=== PATIENT | female | born 1950 | race Caucasian/White ===

== ENCOUNTER → 2018-10-24 07:59 | Outpatient (CLI) | payer OTHER, SELFPAY ==
[2018-10-24 08:52] LABS: Hematocrit 39.5 % (36-46); Hemoglobin 13.2 g/dL (12.0-16.0); Mean Corpuscular HGB Conc 33.4 % (30-36); Mean Corpuscular Hemoglobin 31.7 PG (26-34); Mean Corpuscular Volume 94.8 fL (80-100); Platelet Count 202 X10^3/uL (150-400); Red Blood Cell Count 4.17 X10^6/uL (4.0-5.2); Red Cell Distribution Width 13.6 % (11.6-14.8); White Blood Cell Count 5.3 X10^3/uL (4.5-11.0)
[2018-10-24 09:01] LABS: Hemoglobin A1C% w Est Avg Glu 5.3 % (4.0-6.0)
[2018-10-24 09:29] LABS: Alanine Aminotransferase 38 IU/L (9-52); Albumin 4.4 g/dL (3.5-5.0); Alkaline Phosphatase 58 U/L (38-126); Aspartate Aminotransferase 30 IU/L (14-36); BUN Creatinine Ratio 18.9 (6-22); Bilirubin Total 0.6 mg/dL (0.2-1.3); Blood Urea Nitrogen 17 mg/dL (7-17); Calcium 9.2 mg/dL (8.4-10.2); Carbon Dioxide 28 mmol/L (22-32); Chloride 102 mmol/L (98-107); Cholesterol 219 mg/dL (140-199); Estimated Glomerular Filt Rate > 60.0 mL/min (>60); Globulin 4.4 g/dL (1.7-4.1); Glucose 84 mg/dL (80-110); HDL Cholesterol 68 mg/dL (40-60); HEMOLYSIS < 15 (0-50); LDL Cholesterol Calculated 134 mg/dL (<100); Potassium 4.6 mmol/L (3.4-5.1); Sodium 141 mmol/L (137-145); Total Protein 8.8 g/dL (6.3-8.2); Triglycerides 83 mg/dL (35-150)
[2018-10-24 09:42] LABS: Vitamin D 25 Hydroxy (D3) 38.3 ng/mL (30.0-100.0)
[2018-10-24 09:56] LABS: TSH w/ Reflex to FT4 2.76 uIU/mL (0.47-4.68)
== END ==
PROVIDERS: PCP Nurse Practitioner Family; Visit Provider Nurse Practitioner Family
DX: Z00.00 Encounter for general adult medical examination without abnormal findings (principal); Z68.35 Body mass index [BMI] 35.0-35.9, adult; R63.5 Abnormal weight gain
CPT/HCPCS: 36415; 80053; 80061; 82306; 83036; 84443; 85027

== ENCOUNTER → 2018-11-28 14:23 | Outpatient (CLI) | payer OTHER, SELFPAY ==
--- NOTE | 2018-11-28 14:25 | DI.MG.S_ITS ---
BILATERAL DIGITAL SCREENING MAMMOGRAM 3D/2D WITH CAD: 11/28/2018 CLINICAL: Routine screening. Comparison is made to exams dated: 10/15/2017 mammogram, 08/21/2016 mammogram, and 09/14/2014 mammogram - [facility]. The tissue of both breasts is heterogeneously dense. This may lower the sensitivity of mammography. Current study was also evaluated with a Computer Aided Detection (CAD) system. No significant masses, calcifications, or other findings are seen in either breast. There has been no significant interval change. IMPRESSION: NEGATIVE There is no mammographic evidence of malignancy. A 1 year screening mammogram is recommended. This exam was interpreted at Station ID: [id number]. NOTE: For mammograms, a report in lay terms will be sent to the patient. Approximately 15% of breast malignancies will not be visualized mammographically. In the management of a palpable breast mass, a negative mammogram must not discourage biopsy of a clinically suspicious lesion. Electronically Signed By: Ismael washburn/farhan:11/28/2018 20:10:37 letter sent: Normal Exam ACR BI-RADS Category 1: Negative 3341F
== END ==
PROVIDERS: PCP Nurse Practitioner Family; Visit Provider Nurse Practitioner Family
DX: Z12.31 Encounter for screening mammogram for malignant neoplasm of breast (principal)
CPT/HCPCS: 77063; 77067

== ENCOUNTER → 2019-05-26 09:25 | Outpatient (CLI) | payer OTHER, SELFPAY ==
[2019-05-26 11:15] LABS: Alanine Aminotransferase 25 IU/L (9-52); Albumin 4.1 g/dL (3.5-5.0); Alkaline Phosphatase 64 U/L (38-126); Aspartate Aminotransferase 26 IU/L (14-36); BUN Creatinine Ratio 18.9 (6-22); Bilirubin Total 0.6 mg/dL (0.2-1.3); Blood Urea Nitrogen 17 mg/dL (7-17); Calcium 9.1 mg/dL (8.4-10.2); Carbon Dioxide 28 mmol/L (22-32); Chloride 102 mmol/L (98-107); Cholesterol 204 mg/dL (140-199); Estimated Glomerular Filt Rate > 60.0 mL/min (>60); Globulin 4.2 g/dL (1.7-4.1); Glucose 94 mg/dL (80-110); HDL Cholesterol 76 mg/dL (40-60); HEMOLYSIS < 15 (0-50); LDL Cholesterol Calculated 111 mg/dL (<100); Potassium 4.8 mmol/L (3.4-5.1); Sodium 137 mmol/L (137-145); Total Protein 8.3 g/dL (6.3-8.2); Triglycerides 85 mg/dL (35-150)
== END ==
PROVIDERS: PCP Nurse Practitioner Family; Visit Provider Nurse Practitioner Family
DX: E78.00 Pure hypercholesterolemia, unspecified (principal); E88.09 Other disorders of plasma-protein metabolism, not elsewhere classified
CPT/HCPCS: 36415; 80053; 80061

== ENCOUNTER → 2019-07-09 10:24 | Outpatient (CLI) | payer OTHER, SELFPAY ==
--- NOTE | 2019-07-09 10:27 | DI.RAD.S_ITS ---
PROCEDURE: XR SHOULDER LT MIN 2V INDICATIONS: left shoulder pain TECHNIQUE: 3 views of the shoulder were acquired. COMPARISON: None. FINDINGS: Bones: No fractures or dislocations. No suspicious bony lesions. Visualized ribs appear intact. Mild left shoulder joint degeneration. Soft tissues: No suspicious soft tissue calcifications. IMPRESSION: Mild left shoulder joint degeneration. If the patient's pain or other symptoms persist, consider further evaluation with MRI Dictated by: Omar Jung M.D. on 07/09/2019 at 14:17 Approved by: Omar Jung M.D. on 07/09/2019 at 14:20
== END ==
PROVIDERS: PCP Nurse Practitioner Family; Visit Provider Nurse Practitioner Family
DX: M25.512 Pain in left shoulder (principal); M19.012 Primary osteoarthritis, left shoulder
CPT/HCPCS: 73030

== ENCOUNTER → 2019-07-27 14:10 | Outpatient (CLI) | payer OTHER, SELFPAY ==
--- NOTE | 2019-07-27 14:11 | DI.MRI.S_ITS ---
PROCEDURE: MR SHOULDER LT WO CON INDICATIONS: left shoulder PAIN TECHNIQUE: Noncontrast oblique coronal T2 fast spin echo with fat saturation, oblique sagittal T1 spin echo and T2 fast spin echo with fat saturation, axial T1 spin echo and T2 fast spin echo with fat saturation through the shoulder. COMPARISON: None. FINDINGS: Image quality: Diagnostic. Rotator cuff: Thickening and increased signal is identified involving the supraspinatus and infraspinatus tendons with linear areas of increased signal at the level of the footprint and distal margins of both of these tendons. There is also increased signal identified along the infraspinatus myotendinous junction. Moderate grade bursal surface partial-thickness tearing involving the anterior distal supraspinatus tendon at the level of the footprint is present. The subscapularis and teres minor tendons are intact. There is no significant atrophy of the rotator cuff muscles. Bones and bursae: No acute fracture, dislocation, or suspicious osseous lesion is appreciated involving the osseous structures of the left shoulder. Mild degenerative changes of the glenohumeral joint are present. There moderate degenerative changes of the acromioclavicular joint. No significant glenohumeral joint effusion is present. A moderate amount of fluid is contained within the subacromial subdeltoid bursa. Capsule and soft tissues: Evaluation of the labrum and the glenohumeral ligaments is difficult without intra-articular contrast. No acute ligamentous injuries are suspected. No discrete labral tears are appreciated. However, there is heterogeneity of the posterior labrum. The long head of the biceps tendon is normally positioned within the bicipital groove and is otherwise intact. Slight increased signal and thickening involving the intra-articular portion of this tendon may be present as it passes over the humeral head. IMPRESSION: 1. Low to moderate grade partial-thickness tearing and tendinopathy of the infraspinatus and supraspinatus tendons. There may be an interstitial/delaminating partial-thickness component of the infraspinatus tendon. 2. [id number] degenerative changes of the left shoulder joints. 3. Fluid within the subacromial subdeltoid bursa may represent bursitis. 4. Mild tendinopathy involving the intra-articular portion of the biceps tendon. Dictated by: Ranjit Bruce M.D. on 07/27/2019 at 17:07 Approved by: Ranjit Bruce M.D. on 07/27/2019 at 17:09
== END ==
PROVIDERS: PCP Nurse Practitioner Family; Visit Provider Nurse Practitioner Family
DX: M25.512 Pain in left shoulder (principal); M75.112 Incomplete rotator cuff tear or rupture of left shoulder, not specified as traumatic; M19.012 Primary osteoarthritis, left shoulder; M67.922 Unspecified disorder of synovium and tendon, left upper arm
CPT/HCPCS: 73221

== ENCOUNTER → 2019-09-30 07:48 | Outpatient (CLI) | payer OTHER, SELFPAY ==
[2019-09-30 09:51] LABS: Cholesterol 210 mg/dL (140-199); HDL Cholesterol 55 mg/dL (40-60); LDL Cholesterol Calculated 142 mg/dL (<100); Triglycerides 65 mg/dL (35-150)
== END ==
PROVIDERS: PCP Nurse Practitioner Family; Referring Provider Nurse Practitioner Family; Visit Provider Nurse Practitioner Family
DX: E78.2 Mixed hyperlipidemia (principal)
CPT/HCPCS: 36415; 80061

== ENCOUNTER → 2020-06-29 11:32 | Outpatient (CLI) | payer OTHER, SELFPAY ==
[2020-06-29 14:49] LABS: Alanine Aminotransferase 29 IU/L (<35); Albumin 4.3 g/dL (3.5-5.0); Alkaline Phosphatase 76 U/L (38-126); Aspartate Aminotransferase 30 IU/L (14-36); BUN Creatinine Ratio 17.2 (6-22); Bilirubin Total 0.5 mg/dL (0.2-1.3); Blood Urea Nitrogen 15 mg/dL (7-17); Calcium 9.5 mg/dL (8.4-10.2); Carbon Dioxide 30 mmol/L (22-32); Chloride 104 mmol/L (98-107); Cholesterol 187 mg/dL (140-199); Estimated Glomerular Filt Rate > 60.0 mL/min (>60); Globulin 4.5 g/dL (1.7-4.1); Glucose 95 mg/dL (80-110); HDL Cholesterol 74 mg/dL (40-60); HEMOLYSIS < 15 (0-50); LDL Cholesterol Calculated 96 mg/dL (<100); Potassium 4.9 mmol/L (3.4-5.1); Sodium 138 mmol/L (137-145); Total Protein 8.8 g/dL (6.3-8.2); Triglycerides 84 mg/dL (35-150)
== END ==
PROVIDERS: PCP Nurse Practitioner Family; Referring Provider Nurse Practitioner Family; Visit Provider Nurse Practitioner Family
DX: E88.09 Other disorders of plasma-protein metabolism, not elsewhere classified (principal); E78.2 Mixed hyperlipidemia
CPT/HCPCS: 36415; 80053; 80061

== ENCOUNTER → 2020-07-04 08:30 | Outpatient (CLI) | payer OTHER, SELFPAY ==
[2020-07-06 15:43] LABS: Albumin 3.9 g/dL (2.9-4.4); Alpha-1-Globulin 0.2 g/dL (0.0-0.4); Alpha-2-Globulin 0.6 g/dL (0.4-1.0); Gamma Globulin 2.2 g/dL (0.4-1.8); Globulin Total 3.8 g/dL (2.2-3.9); Protein, Total 7.7 g/dL (6.0-8.5)
--- NOTE | 2020-07-07 15:28 | ONC.MSW ---
Description: New Referral Navigation Reason for Referral: Elevated Blood Proteins, acute Activity: Reviewed referral and EMR for medical status, acuity, and immediate needs. Forwarded to scheduling for next available consult time.
== END ==
PROVIDERS: PCP Nurse Practitioner Family; Referring Provider Nurse Practitioner Family; Visit Provider Nurse Practitioner Family
DX: E88.09 Other disorders of plasma-protein metabolism, not elsewhere classified (principal)
CPT/HCPCS: 36415; 84155; 84165

== ENCOUNTER → 2020-10-21 16:10 | Outpatient (CLI) | payer OTHER, SELFPAY ==
--- NOTE | 2020-10-21 16:11 | DI.MG.S_ITS ---
BILATERAL DIGITAL SCREENING MAMMOGRAM 3D/2D WITH CAD: 10/21/2020 CLINICAL: Routine screening. Comparison is made to exams dated: 11/28/2018 mammogram - [facility], 10/15/2017 mammogram, and 08/21/2016 mammogram - [facility]. The tissue of both breasts is heterogeneously dense. This may lower the sensitivity of mammography. Current study was also evaluated with a Computer Aided Detection (CAD) system. No significant masses, calcifications, or other findings are seen in either breast. There has been no significant interval change. IMPRESSION: NEGATIVE There is no mammographic evidence of malignancy. A 1 year screening mammogram is recommended. This exam was interpreted at Station ID: [id number]. NOTE: For mammograms, a report in lay terms will be sent to the patient. Approximately 15% of breast malignancies will not be visualized mammographically. In the management of a palpable breast mass, a negative mammogram must not discourage biopsy of a clinically suspicious lesion. Electronically Signed By: Bart de leon/farhan:10/21/2020 16:28:36 letter sent: Normal Exam ACR BI-RADS Category 1: Negative 3341F
== END ==
PROVIDERS: PCP Nurse Practitioner Family; Referring Provider Nurse Practitioner Family; Visit Provider Nurse Practitioner Family
DX: Z12.31 Encounter for screening mammogram for malignant neoplasm of breast (principal)
CPT/HCPCS: 77063; 77067

== ENCOUNTER → 2020-11-09 08:49 | Outpatient (CLI) | payer OTHER, SELFPAY ==
--- NOTE | 2020-11-09 08:50 | DI.MRI.S_ITS ---
PROCEDURE: MR BONE MARROW INDICATIONS: Multiple myeloma, looking for bone lesions TECHNIQUE: Noncontrast sagittal T1 spin echo and STIR through the spine; coronal T1 spin echo and STIR through the bony thorax, coronal T1 spin echo and STIR through the bony pelvis and femurs. COMPARISON: None. FINDINGS: Image quality: Excellent. Spine: Grade 1 anterolisthesis of L4 on L5 is seen with right-sided pars defect noted at L4 level. No vertebral body compression fractures. The bone marrow demonstrates no suspicious lesions or signal abnormalities. The central spinal canal is of normal overall caliber. The visualized spinal cord demonstrates normal intramedullary signal. The conus is in expected position. No epidural or paravertebral soft tissue masses. Degenerative endplate changes are seen at mid to lower cervical spine and lower lumbar spine more prominent at L4-5 and L5-S1 levels. Pelvis and hips: The bone marrow demonstrates normal signal throughout. No pelvic ring or sacral pathologic or insufficiency fractures. Physiologic amounts of hip joint fluid are present. No joint degeneration or soft tissue bursal fluid collections. Osteoarthritic changes are noted in bilateral acromioclavicular joints, glenohumeral joints and hip joints. Soft tissues: No free pelvic fluid. No pathologic pelvic or inguinal adenopathy. Visualized bowel loops appear normal in caliber. Limited images through the genitourinary tract demonstrate no abnormalities. The muscles demonstrate normal overall bulk and internal signal. IMPRESSION: 1. No suspicious bony lesion is identified. 2. Right-sided pars defect at L4 level with grade 1 anterolisthesis of L4 on L5. Degenerative endplate changes noted in mid to lower cervical spine and lower lumbar spine. No acute compression fracture. 3. 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 No evidence of avascular necrosis of femoral heads. 4. No discrete soft tissue mass is seen. No pelvic free fluid. No abnormal signal is seen within spinal canal. Dictated by: Mahesh Franco M.D. on 11/09/2020 at 13:08 Approved by: Mahesh Franco M.D. on 11/09/2020 at 13:18
--- NOTE | 2020-11-09 11:31 | DI.CT.S_ITS ---
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 5 mm coronal and sagittal reformats were performed, with additional 7 mm coronal MIP reformats through the lungs. For radiation dose reduction, the following was used: automated exposure control, adjustment of mA and/or kV according to patient size. COMPARISON: [facility], MR, MR BONE MARROW, 11/09/2020, 9:54. FINDINGS: Image quality: Excellent. CHEST: Lungs and pleura: No acute airspace opacities. There is mild interstitial prominence best seen at the lung bases with a small degree of fibrotic change. Suspect prior smoking history. No pleural effusions or pneumothorax. Central and peripheral airways appear patent and normal in caliber. Mediastinum: Heart size is normal. No pericardial effusion. No mediastinal or hilar adenopathy by size criteria. Thoracic aorta and central pulmonary arteries are normal in size. Esophagus is normal in caliber. No hiatal hernia. Chest wall: No axillary or supraclavicular adenopathy by size criteria. Thyroid gland appears normal where well seen . ABDOMEN: Solid organs: Liver is normal in size and enhancement except for a small perfusion anomaly at the posterior subcapsular margin of the right hepatic posterior segment, measuring 1.5 cm in maximal dimension and likely representing a small unilocular hemangioma. Gallbladder appears normal . Biliary system is non dilated. Pancreas enhances normally. Spleen is normal in size and enhancement. No adrenal nodules. Kidneys demonstrate normal size and enhancement, without hydronephrosis. Peritoneum and bowel: Bowel loops demonstrate normal wall thickness and caliber. No free fluid or air. Nodes and vessels: No retroperitoneal or mesenteric adenopathy by size criteria. Aorta and inferior vena cava are normal in size. Miscellaneous: No ventral hernias. PELVIS: Genitourinary: Bladder wall thickness is normal. Miscellaneous: No inguinal hernias or adenopathy. Bones: No suspicious bony lesions. No vertebral body compression fractures. IMPRESSION: Throughout the visualized chest abdomen and pelvis no osseous disease is seen that would indicate underlying multiple myeloma. 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 This structure may be detectable by targeted single organ ultrasound for further characterization. Dictated by: Noam Bryan M.D. on 11/09/2020 at 14:13 Approved by: Noam Bryan M.D. on 11/09/2020 at 14:20
== END ==
PROVIDERS: PCP Nurse Practitioner Family; Referring Provider Internal Medicine; Visit Provider Internal Medicine
DX: C90.00 Multiple myeloma not having achieved remission (principal); C85.80 Other specified types of non-Hodgkin lymphoma, unspecified site; M43.16 Spondylolisthesis, lumbar region
CPT/HCPCS: 71260; 74177; 77084; Q9967

== ENCOUNTER → 2021-04-20 11:29 | Outpatient (CLI) | payer OTHER, SELFPAY ==
--- NOTE | 2021-04-20 11:30 | DI.RAD.S_ITS ---
PROCEDURE: XR FOOT RT MIN 3V INDICATIONS: Stubbed toe TECHNIQUE: 3 views of the foot were acquired. COMPARISON: None. FINDINGS: Bones: Postsurgical changes compatible with 1st metatarsal osteotomy. Nondisplaced fracture of the 4th proximal phalange. Soft tissues: No tibiotalar joint effusion. Achilles tendon appears normal. IMPRESSION: 4th proximal phalange fracture. Dictated by: Elisa Savage MD, PhD on 04/20/2021 at 11:38 Approved by: Elisa Savage MD, PhD on 04/20/2021 at 11:39
== END ==
PROVIDERS: PCP Nurse Practitioner Family; Referring Provider Nurse Practitioner; Visit Provider Nurse Practitioner
DX: S92.514A Nondisplaced fracture of proximal phalanx of right lesser toe(s), initial encounter for closed fracture (principal); W22.8XXA Striking against or struck by other objects, initial encounter
CPT/HCPCS: 73630

== ENCOUNTER → 2021-12-14 13:47 | Outpatient (CLI) | payer OTHER, SELFPAY ==
--- NOTE | 2021-12-14 13:48 | DI.MG.S_ITS ---
BILATERAL DIGITAL SCREENING MAMMOGRAM 3D/2D WITH CAD: 12/14/2021 CLINICAL: Routine screening. Comparison is made to exams dated: 10/21/2020 mammogram, 11/28/2018 mammogram - , and 10/15/2017 mammogram - [facility]. The tissue of both breasts is heterogeneously dense. This may lower the sensitivity of mammography. Current study was also evaluated with a Computer Aided Detection (CAD) system. No significant masses, calcifications, or other findings are seen in either breast. There has been no significant interval change. IMPRESSION: NEGATIVE There is no mammographic evidence of malignancy. A 1 year screening mammogram is recommended. This exam was interpreted at Station ID: [id number]. NOTE: For mammograms, a report in lay terms will be sent to the patient. Approximately 15% of breast malignancies will not be visualized mammographically. In the management of a palpable breast mass, a negative mammogram must not discourage biopsy of a clinically suspicious lesion. Electronically Signed By: Ismael washburn/farhan:12/14/2021 17:37:28 letter sent: Normal Exam ACR BI-RADS Category 1: Negative 3341F
== END ==
PROVIDERS: PCP Nurse Practitioner Family; Referring Provider Nurse Practitioner Family; Visit Provider Nurse Practitioner Family
DX: Z12.31 Encounter for screening mammogram for malignant neoplasm of breast (principal)
CPT/HCPCS: 77063; 77067

== ENCOUNTER → 2022-12-17 14:29 | Outpatient (CLI) | payer OTHER, SELFPAY ==
--- NOTE | 2022-12-17 | DI.MG.S_ITS ---
BILATERAL DIGITAL SCREENING MAMMOGRAM 3D/2D WITH CAD: 12/17/2022 CLINICAL: Routine screening. Comparison is made to exams dated: 12/14/2021 mammogram, 10/21/2020 mammogram, and 11/28/2018 mammogram - [facility]. Both breasts are heterogeneously dense, which may obscure small masses (category c / 51-75% glandular tissue). Current study was also evaluated with a Computer Aided Detection (CAD) system. There are mole markers on both breasts. No significant masses, calcifications, or other findings are seen in either breast. There has been no significant interval change. IMPRESSION: NEGATIVE There is no mammographic evidence of malignancy. A 1 year screening mammogram is recommended. Based on the Tyrer Cuzick model (a risk assessment model) the patient's lifetime risk is 6.9% and her 10 year risk is 4.4%. According to the ACR, ACS, and NCCN guidelines, an annual breast MRI exam along with mammogram is recommended if the patient's lifetime risk is 20% or greater. This exam was interpreted at Station ID: [id number]. NOTE: For mammograms, a report in lay terms will be sent to the patient. Approximately 15% of breast malignancies will not be visualized mammographically. In the management of a palpable breast mass, a negative mammogram must not discourage biopsy of a clinically suspicious lesion. Electronically Signed By: Kristopher hernandez/farhan:12/17/2022 16:12:59 letter sent: Normal Exam ACR BI-RADS Category 1: Negative 3341F
== END ==
PROVIDERS: PCP Family Medicine; Referring Provider Family Medicine; Visit Provider Family Medicine
DX: Z12.31 Encounter for screening mammogram for malignant neoplasm of breast (principal)
CPT/HCPCS: 77063; 77067

== ENCOUNTER → 2022-12-25 07:28 | Outpatient (CLI) | payer OTHER, SELFPAY ==
[2022-12-25 09:31] LABS: Cholesterol 162 mg/dL (140-199); HDL Cholesterol 62 mg/dL (40-60); LDL Cholesterol Calculated 87 mg/dL (<100); Triglycerides 67 mg/dL (35-150)
== END ==
PROVIDERS: PCP Family Medicine; Referring Provider Family Medicine; Visit Provider Family Medicine
DX: E78.5 Hyperlipidemia, unspecified (principal)
CPT/HCPCS: 36415; 80061

== ENCOUNTER → 2023-10-01 14:22 | Outpatient (CLI) | payer OTHER, SELFPAY ==
[2023-10-01 16:17] LABS: Add Manual Diff / Slide Review NO; Basophils Absolute Auto 0 /uL (0-100); Basophils Percent Auto 0.3 % (0-2); Eosinophils Absolute Auto 0 /uL (0-450); Eosinophils Percent Auto 0.7 % (2-4); Hematocrit 35.5 % (36-46); Lymphocytes Absolute Auto 2400 /uL (1100-4500); Lymphocytes Percent Auto 47.1 % (25-40); Mean Corpuscular HGB Conc 33.7 % (30-36); Mean Corpuscular Volume 95.1 fL (80-100); Monocytes Absolute Auto 300 /uL (0-900); Monocytes Percent Auto 6.7 % (3-14); Neutrophils Absolute Auto 2300 /uL (1500-7000); Neutrophils Percent Auto 45.2 % (50-75); Platelet Count 182 X10^3/uL (150-400); Red Blood Cell Count 3.74 X10^6/uL (4.0-5.2); White Blood Cell Count 5.1 X10^3/uL (4.5-11.0)
[2023-10-01 16:26] LABS: Alanine Aminotransferase 25 IU/L (<35); Albumin 4.1 g/dL (3.5-5.0); Alkaline Phosphatase 46 U/L (38-126); Aspartate Aminotransferase 27 IU/L (14-36); BUN Creatinine Ratio 16.1 (6-22); Bilirubin Total 0.5 mg/dL (0.2-1.3); Blood Urea Nitrogen 15 mg/dL (7-17); Calcium 9.1 mg/dL (8.4-10.2); Carbon Dioxide 25 mmol/L (22-32); Chloride 104 mmol/L (98-107); Estimated Glomerular Filt Rate > 60 mL/min (>60); Globulin 4.1 g/dL (1.7-4.1); Glucose 88 mg/dL (80-110); HEMOLYSIS < 15 (0-50); Lactate Dehydrogenase 198 U/L (120-246); Sodium 140 mmol/L (137-145); Total Protein 8.2 g/dL (6.3-8.2)
[2023-10-01 21:23] LABS: Erythrocyte Sedimentation Rate 33 MM/HR (0-20)
[2023-10-03 20:30] LABS: Free Kappa Lt Chains, Serum 57.2 mg/L (3.3-19.4); Free Lambda Lt Chains,Serum 6.8 mg/L (5.7-26.3)
[2023-10-04 13:36] LABS: Albumin 3.8 g/dL (2.9-4.4); Alpha-1-Globulin 0.3 g/dL (0.0-0.4); Alpha-2-Globulin 0.7 g/dL (0.4-1.0); Gamma Globulin 1.8 g/dL (0.4-1.8); Globulin Total 3.7 g/dL (2.2-3.9); Immunoglobulin A, Serum 28 mg/dL (64-422); Immunoglobulin G,Serum 2346 mg/dL (586-1602); Immunoglobulin M, Serum 17 mg/dL (26-217); Protein, Total 7.5 g/dL (6.0-8.5)
== END ==
LOC: LAB 14:23
PROVIDERS: PCP Family Medicine; Referring Provider Internal Medicine Hematology & Oncology; Visit Provider Internal Medicine Hematology & Oncology
DX: E78.5 Hyperlipidemia, unspecified (principal); D47.2 Monoclonal gammopathy; Z85.820 Personal history of malignant melanoma of skin; D72.820 Lymphocytosis (symptomatic)
CPT/HCPCS: 36415; 80053; 82784; 83615; 83883; 84155; 84165; 85025; 85651; 86334

== ENCOUNTER → 2024-01-16 12:41 | Outpatient (CLI) | payer OTHER, SELFPAY ==
--- NOTE | 2024-01-16 12:42 | DI.MG.S_ITS ---
BILATERAL DIGITAL SCREENING MAMMOGRAM 3D/2D WITH CAD: 01/16/2024 CLINICAL: Routine screening. Comparison is made to exams dated: 12/17/2022 mammogram, 12/14/2021 mammogram, and 10/21/2020 mammogram - [facility]. Both breasts are heterogeneously dense, which may obscure small masses (category c / 51-75% glandular tissue). Current study was also evaluated with a Computer Aided Detection (CAD) system. There are mole markers on the right breast. No significant masses, calcifications, or other findings are seen in either breast. There has been no significant interval change. IMPRESSION: NEGATIVE There is no mammographic evidence of malignancy. A 1 year screening mammogram is recommended. Based on the Tyrer Cuzick model (a risk assessment model) the patient's lifetime risk is 6.2% and her 10 year risk is 4.6%. According to the ACR, ACS, and NCCN guidelines, an annual breast MRI exam along with mammogram is recommended if the patient's lifetime risk is 20% or greater. This exam was interpreted at Station ID: [id number]. NOTE: For mammograms, a report in lay terms will be sent to the patient. Approximately 15% of breast malignancies will not be visualized mammographically. In the management of a palpable breast mass, a negative mammogram must not discourage biopsy of a clinically suspicious lesion. Electronically Signed By: Yoselin zarate/farhan:01/16/2024 17:06:08 letter sent: Normal Exam ACR BI-RADS Category 1: Negative 3341F
== END ==
PROVIDERS: PCP Family Medicine; Referring Provider Family Medicine; Visit Provider Family Medicine
DX: Z12.31 Encounter for screening mammogram for malignant neoplasm of breast (principal); R92.333 Mammographic heterogeneous density, bilateral breasts
CPT/HCPCS: 77063; 77067

== ENCOUNTER → 2024-07-10 15:26 | Outpatient (CLI) | payer OTHER, SELFPAY ==
[2024-07-10 18:55] LABS: Add Manual Diff / Slide Review NO; Basophils Absolute Auto 0 /uL (0-100); Basophils Percent Auto 0.2 % (0-2); Eosinophils Absolute Auto 0 /uL (0-450); Eosinophils Percent Auto 0.4 % (2-4); Hematocrit 37.1 % (36-46); Hemoglobin 12.5 g/dL (12.0-16.0); Lymphocytes Absolute Auto 2900 /uL (1100-4500); Lymphocytes Percent Auto 38.7 % (25-40); Mean Corpuscular HGB Conc 33.6 % (30-36); Mean Corpuscular Hemoglobin 32.9 PG (26-34); Mean Corpuscular Volume 97.9 fL (80-100); Monocytes Absolute Auto 500 /uL (0-900); Monocytes Percent Auto 7.1 % (3-14); Neutrophils Absolute Auto 4000 /uL (1500-7000); Neutrophils Percent Auto 53.6 % (50-75); Platelet Count 207 X10^3/uL (150-400); Red Blood Cell Count 3.79 X10^6/uL (4.0-5.2); Red Cell Distribution Width 13.3 % (11.6-14.8); White Blood Cell Count 7.5 X10^3/uL (4.5-11.0)
[2024-07-10 19:15] LABS: Alanine Aminotransferase 23 IU/L (<35); Albumin 4.1 g/dL (3.5-5.0); Albumin Globulin Ratio 1.1 (1.0-2.8); Alkaline Phosphatase 64 U/L (38-126); Aspartate Aminotransferase 25 IU/L (14-36); BUN Creatinine Ratio 28.1 (6-22); Bilirubin Total 0.5 mg/dL (0.2-1.3); Blood Urea Nitrogen 27 mg/dL (7-17); Calcium 9.3 mg/dL (8.4-10.2); Carbon Dioxide 22 mmol/L (22-32); Chloride 106 mmol/L (98-107); Estimated Glomerular Filt Rate > 60 mL/min (>60); Globulin 3.9 g/dL (1.7-4.1); Glucose 88 mg/dL (80-110); HEMOLYSIS < 15 (0-50); Lactate Dehydrogenase 200 U/L (120-246); Sodium 137 mmol/L (137-145)
[2024-07-10 20:03] LABS: Erythrocyte Sedimentation Rate 29 MM/HR (0-20)
[2024-07-13 05:36] LABS: Ionized Calcium 5.2 mg/dL (4.5-5.6)
== END ==
PROVIDERS: PCP Family Medicine; Referring Provider Internal Medicine Hematology & Oncology; Visit Provider Internal Medicine Hematology & Oncology
DX: D47.2 Monoclonal gammopathy (principal); Z85.820 Personal history of malignant melanoma of skin; E78.5 Hyperlipidemia, unspecified; D72.820 Lymphocytosis (symptomatic)
CPT/HCPCS: 36415; 80053; 82232; 82330; 82784; 83615; 84155; 84165; 85025; 85651; 86334

== ENCOUNTER → 2025-02-02 14:35 | Outpatient (CLI) | payer OTHER, SELFPAY ==
--- NOTE | 2025-02-02 14:36 | DI.MG.S_ITS ---
MM screening mammo BI: 02/02/2025. BI-RADS: 1 CLINICAL: 74-year old female for bilateral screening mammogram. Tyrer-Cuzick lifetime risk of 6.4%. No personal or first-degree family history of breast cancer. PRIOR EXAMS 01/16/2024, 12/17/2022, 12/14/2021, 10/21/2020, 11/28/2018. MAMMOGRAPHY TECHNIQUE: 2D and 3D (tomosynthesis) digital mammographic views obtained, with additional images as needed for full coverage. Current study was also evaluated with a Computer Aided Detection (CAD) system. DENSITY C. The breasts are heterogeneously dense, which may obscure small masses. MAMMOGRAPHY FINDINGS Bilateral: No suspicious mass, asymmetry, microcalcification, or other abnormality seen. No significant change from comparison. IMPRESSION: * No evidence of malignancy. RECOMMENDATIONS Bilateral * Annual screening mammography. OVERALL ASSESSMENT CATEGORY BI-RADS-1: Negative. The [employer] recommends annual screening mammography beginning at age 40 for women with average risk of breast cancer. ELECTRONICALLY SIGNED: Yoselin Jeffrye M.D. on 02/05/2025 at 07:00:33 PM PT Interpreting Station ID: [id number]
== END ==
LOC: MAMMO 14:36
PROVIDERS: PCP Family Medicine; Referring Provider Family Medicine; Visit Provider Family Medicine
DX: Z12.31 Encounter for screening mammogram for malignant neoplasm of breast (principal); R92.333 Mammographic heterogeneous density, bilateral breasts
CPT/HCPCS: 77063; 77067

== ENCOUNTER → 2025-05-03 09:41 | Outpatient (CLI) | payer OTHER, SELFPAY ==
--- NOTE | 2025-05-03 09:43 | EKG_ITS ---
[facility] [address] [place] [address] Test Date: 2025-05-03 Pat Name: Hillary Anaya Department: [facility] Room: Gender: Female Customer Care Coordinator: CODY : 1950 Requested By: Order Number: [id number] Reading MD: Geoff Lopez MD Measurements Intervals [place] Rate: 40 P: 62 ME: 200 QRS: 3 QRSD: 78 T: 63 QT: 470 QTc: 383 Interpretive Statements Critical Test Result: Low HR Marked sinus bradycardia Nonspecific ST abnormality Electronically Signed On 05-03-2025 15:07:40 PDT by Geoff Lopez MD
[2025-05-03 10:38] LABS: Add Manual Diff / Slide Review NO; Hematocrit 37.3 % (36-46); Hemoglobin 12.6 g/dL (12.0-16.0); Lymphocytes Absolute Auto 3500 /uL (1100-4500); Mean Corpuscular HGB Conc 33.8 % (30-36); Mean Corpuscular Hemoglobin 32.2 PG (26-34); Mean Corpuscular Volume 95.3 fL (80-100); Platelet Count 177 X10^3/uL (150-400)
[2025-05-03 10:58] LABS: Hemoglobin A1C% w Est Avg Glu 5.4 % (4.0-6.0)
[2025-05-03 12:00] LABS: Albumin 4.2 g/dL (3.5-5.0); Blood Urea Nitrogen 15 mg/dL (7-17); Calcium 9.3 mg/dL (8.4-10.2); Carbon Dioxide 26 mmol/L (22-32); Chloride 103 mmol/L (98-107); Estimated Glomerular Filt Rate > 60 mL/min (>60); Glucose 87 mg/dL (70-99); HEMOLYSIS 15 (0-50); Potassium 5.2 mmol/L (3.4-5.1); Sodium 135 mmol/L (137-145)
[2025-05-03 12:10] LABS: Prealbumin 26.5 mg/dL (17.6-36.0)
[2025-05-03 12:13] LABS: Vitamin D 25 Hydroxy (D3) 49.2 ng/mL (30.0-100.0)
== END ==
PROVIDERS: PCP Family Medicine; Referring Provider Orthopaedic Surgery Adult Reconstructive Orthopaedic Surgery; Visit Provider Orthopaedic Surgery Adult Reconstructive Orthopaedic Surgery
DX: Z01.818 Encounter for other preprocedural examination (principal); M17.0 Bilateral primary osteoarthritis of knee; Z68.35 Body mass index [BMI] 35.0-35.9, adult
CPT/HCPCS: 36415; 80048; 82040; 82306; 83036; 84134; 85025; 93005; 93010